=== PATIENT | male | born 1965 | race African-American/Black ===

== ENCOUNTER → 2018-01-24 | Outpatient (CLI) | payer BC ==
--- NOTE | 2018-01-26 10:30 | RADIOLOGY REPORT (SQ) ---
EXAM DESCRIPTION: MRI LT LOWER EXTREMITY COMBO COMPLETED DATE/TIME: 01/24/2018 9:24 am REASON FOR STUDY: LEFT THIGH MASS R22.42 LOCALIZED SWELLING, MASS AND LUMP, LEFT LOWER LIMB COMPARISON: None. TECHNIQUE: Multiplanar fat and fluid sensitive sequences precontrast including T1, T2 fat saturated or STIR. Post contrast T1 fat saturated sequences after IV gadolinium administration. CONTRAST TYPE AND DOSE: 15 mL Prohance. RENAL FUNCTION: GFR > 60. LIMITATIONS: None. FINDINGS: MASS SIGNAL CHARACTERISTICS: LOCATION: Semitendinosis. SIGNAL CHARACTERISTICS AND ENHANCEMENT PATTERN: Follows fat on all sequences. No enhancement. MEASUREMENTS: 5.4 x 4.6 x 9.2 cm AP by transverse by craniocaudal diameter. MARROW SIGNAL IN ADJACENT BONES: Normal. OTHER SIGNIFICANT BONE, JOINT OR SOFT TISSUE FINDINGS: Healed fracture proximal femoral diaphysis. IMPRESSION: Benign lipoma. TECHNICAL DOCUMENTATION: JOB ID: [id number] [employer]- All Rights Reserved Reading location - IP/workstation name: [email or web address]
== END ==
LOC: RAD 08:37
PROVIDERS: ATTEND Surgery
DX: D17.79 Benign lipomatous neoplasm of other sites (principal)
CPT/HCPCS: 82565; 73720; A9576

== ENCOUNTER 2018-06-15 05:26 | Observation (INO) | payer BC ==
[~2018-06-15 05:26] MED LIST: CEFAZOLIN 1 GM/D5W RTU 1 GM/50 ML RTUPB IV ONE; CEFAZOLIN 1 GM/D5W RTU 1 GM/50 ML RTUPB IV PRN
[2018-06-15 06:20] LABS: ABSOLUTE BASOPHILS # (AUTO) 0.1 10^3/uL (0.0-0.2); ABSOLUTE EOSINOPHILS # (AUTO) 0.2 10^3/uL (0.0-0.6); ABSOLUTE LYMPHOCYTES (AUTO) 2.2 10^3/uL (0.5-4.7); ABSOLUTE MONOCYTES (AUTO) 0.7 10^3/uL (0.1-1.4); ABSOLUTE NEUT (AUTO) 3.8 10^3/uL (1.7-8.2); BASOPHILS % (AUTO) 0.8 % (0-2); EOSINOPHILS % (AUTO) 2.3 % (0-6); HEMATOCRIT 44.6 % (37.9-51.0); HEMOGLOBIN 15.5 g/dL (13.5-17.0); LYMPHOCYTES % (AUTO) 31.7 % (13-45); MEAN CORPUSCULAR HEMOGLOBIN 30.4 pg (27.0-33.4); MEAN CORPUSCULAR HGB CONC 34.8 g/dL (32.0-36.0); MEAN CORPUSCULAR VOLUME 87 fl (80-97); MONOCYTES % (AUTO) 10.2 % (3-13); PLATELET COUNT 269 10^3/uL (150-450); RED BLOOD COUNT 5.11 10^6/uL (4.35-5.55); RED CELL DISTRIBUTION WIDTH 12.7 % (11.5-14.0); TOTAL CELLS COUNTED % (AUTO) 100 %; WHITE BLOOD COUNT 6.9 10^3/uL (4.0-10.5)
[2018-06-15] MEDS ORDERED: KETOROLAC TROMETHAMINE 60 MG/2 ML SDV ONE (06:42)
[2018-06-15] MEDS ORDERED: MIDAZOLAM 2 MG/2 ML INJ ONE (06:42)
[2018-06-15] MEDS ORDERED: FENTANYL CITRATE INJ/PF 100 MCG/2 ML AMPUL ONE (06:42)
[2018-06-15] MEDS ORDERED: ACETAMINOPHEN 1,000 MG/100 ML RTUPB IV ONE (06:43)
[2018-06-15] MEDS ORDERED: LIDOCAINE 1% INJ-PF (10 MG/ML) 30 ML SDV ONE (06:43)
[2018-06-15] MEDS ORDERED: DEXAMETHASONE SOD PHOSPHATE INJ 4 MG/1 ML VIAL ONE (06:43)
[2018-06-15] MEDS ORDERED: ONDANSETRON HCL INJ/PF 4 MG/2 ML SDV ONE (06:43)
[2018-06-15] MEDS ORDERED: PROPOFOL INJ 200 MG/20 ML VIAL IV ONE ×2 (06:43→08:09)
[2018-06-15] MEDS ORDERED: FENTANYL CITRATE INJ/PF 100 MCG/2 ML AMPUL IV PRN ×3 (08:45)
[2018-06-15] MEDS ORDERED: MORPHINE SULFATE 10 MG/ML INJ IV PRN (08:45)
[2018-06-15] MEDS ORDERED: DIPHENHYDRAMINE HCL 50 MG/ML VIAL IV PRN (08:45)
[2018-06-15] MEDS ORDERED: OXYCODONE-ACETAMINOPHEN 5-325 MG TABLET PO PRN ×2 (08:45)
[2018-06-15] MEDS ORDERED: MEPERIDINE HCL/PF INJ 25 MG/1 ML DISP.SYRIN IV PRN (08:45)
[2018-06-15] MEDS ORDERED: PROMETHAZINE HCL INJ 25 MG/1 ML VIAL IV PRN ×2 (08:45)
[2018-06-15] MEDS ORDERED: ONDANSETRON HCL INJ/PF 4 MG/2 ML SDV IV PRN (08:45)
--- NOTE | 2018-06-15 09:21 | Discharge Summary ---
Discharge Summary (SDC) - Discharge Final Diagnosis: Left posterior thigh mass Date of Surgery: 06/15/18 Discharge Date: 06/15/18 Condition: Stable Treatment or Instructions: WOUND CARE: You may shower in 24 hours. Leave outer dressing intact as to not get incision wet until 48 hours. After 48 hours, you may remove outer dressing from incision and around drain site. Warm water and soap may wash over wound, do not scrub. After shower, pat dry and re cover both the incision and drain site with gauze and tape. Empty drain every 24 hours. Measure output of drain by removing drain cap ( allowing air to fill the drain bulb) and measure fluid in drain by markings on bulb. Record output and bring to the clinic at follow up. PAIN MANAGEMENT: You may take Toradol 10 mg, one pill by mouth every six hours as needed for pain. FOLLOW UP: Return to clinic in 10 days for wound check and pathology. Call clinic sooner with questions/concerns or if incision becomes red, swollen or foul smelling drainage. Prescriptions: Ketorolac Tromethamine [Toradol 10 mg Tablet] 10 mg PO Q6HP PRN #20 tablet PRN Reason: Referrals: KODI LI MD [Primary Care Provider] - Discharge Diet: As Tolerated Discharge Activity: Walk Frequently Report the Following to Your Physician Immediately: Fever over 101 Degrees, Unusual Bleeding, Redness, Swelling, Warmth, Drainage-Green, Drainage-Foul Smelling
--- NOTE | 2018-06-15 09:23 | Operative Report ---
Operative Report DATE OF SURGERY: 06/15/18 PREOPERATIVE DIAGNOSIS: Large left lower extremity intramuscular lipoma POSTOPERATIVE DIAGNOSIS: Same OPERATION: 1. Complete excision of left lower extremity intramuscular lipoma. 2. Drainage of intramuscular compartment left lower extremity SURGEON: RASHI HARVEY 1ST PROGRAM ENGINEER: MASON VELAZQUEZ ANESTHESIA: GA TISSUE REMOVED OR ALTERED: Lipoma with satellite components COMPLICATIONS: None ESTIMATED BLOOD LOSS: Scant INTRAOPERATIVE FINDINGS: See below PROCEDURE: The patient was seen in the preop holding area with a left lower extremity was marked. The patient was then taken to the main operating room where general anesthesia was induced. This did require several attempts due to the anterior position of the hypopharynx, and redundant pharyngeal tissue. The patient was then rolled in a prone position with appropriate head neck and upper extremity support. Patient developed ventilation problems, without deterioration in his oxygenation. Anesthesia assessed the situation and determined that patient should be placed back in the supine position and this was accomplished. Reinspection of the endotracheal tube confirmed appropriate positioning of the tube. The patient had no evidence of bronchospasm, or pulmonary edema. The patient was placed back in the prone position, and initially did well, then again had problems with ventilation. Anesthesia reassess the situation and determined that there was malfunctioning of the ventilator. While the patient was being bagged by hand with adequate oxygenation, the ventilator was exchanged uneventfully, with improvement in ventilation of the patient. At no point during this exchange did we feel the patient was in jeopardy. Adequate anesthetic support was provided throughout the ventilator exchange. We elected to proceed with the procedure as planned. The left posterior thigh was exposed appropriately, prepped and draped in sterile fashion. Surgical plan surgical timeout were conducted. The palpable mass was appreciated in the mid to slightly left of midline posterior thigh. Findings were consistent with an enlarging soft tissue mass consistent with lipoma in the substance of the left semitendinosus muscle as identified by MRI scan approximately 4 months prior. He was Leslee 1% plain lidocaine. Approximately 8 cm incision was made vertically oriented over the maximum point of elevation. Subcutaneous tissue and fascia were divided with electrocautery. Using a combination of finger dissection, the muscular mass consistent with a lobulated but well-defined and circumscribed lipoma was from the surrounding musculature. Laterally posteriorly and medially, there were no significant attachments at all. Superiorly there were only a few fibrous attachments to the surrounding semitendinosus muscle. We are able to currently shuck out the mass such that it was suspended solely by a few fibromuscular elements inferiorly. These were cauterized and the mass was freed up in its entirety. There were 2 satellite lobular masses consistent with lipomas which were only dissected out and sent with the specimen. Specimens were placed on the back table with a ruler, and photographed for documentation purposes We checked the intramuscular compartment for bleeding and there was none. At no point did we transect any significant neuro vascular components. We felt the operation was complete. A #15 large Ke drain was placed to the inferior skin flap in midline, trimmed the appropriate length, secured to skin with 2-0 Prolene suture. The operative wound was closed in layers with 2-0 Vicryl 3-0 Vicryl and violette. Dressing, Denilson wrap applied. Patient was placed in the supine position, extubated uneventfully and taken to recovery room in stable condition. A portable upright chest x-ray will be obtained in the recovery room. The physician therapist's assistant, Ms. Coelho, provided assistance during this case by: Assisting with retracting tissue, instillation of local anesthesia and closure of skin incisions.
[2018-06-15] MEDS ORDERED: FUROSEMIDE INJ/PF 40 MG/4 ML SDV ONE (09:37)
--- NOTE | 2018-06-15 09:42 | RADIOLOGY REPORT (SQ) ---
EXAM DESCRIPTION: CHEST SINGLE VIEW COMPLETED DATE/TIME: 06/15/2018 9:27 am REASON FOR STUDY: difficult intubation COMPARISON: None. EXAM PARAMETERS: NUMBER OF VIEWS: One view. TECHNIQUE: Single frontal radiographic view of the chest acquired. RADIATION DOSE: NA LIMITATIONS: None. FINDINGS: LUNGS AND PLEURA: Bilateral diffuse airspace disease may be on the basis of edema or infi ltrates. No pneumothorax. MEDIASTINUM AND HILAR STRUCTURES: No masses. Contour normal. HEART AND VASCULAR STRUCTURES: Cardiomegaly. BONES: No acute findings. HARDWARE: None in the chest. OTHER: No other significant finding. IMPRESSION: 1. Bilateral diffuse airspace disease may be on the basis of edema or infiltrates. 2. No pneumothorax. 3. Cardiomegaly. TECHNICAL DOCUMENTATION: JOB ID: [id number] [employer]- All Rights Reserved Reading location - IP/workstation name: [email or web address]
[2018-06-15 10:23] LABS: ABSOLUTE EOSINOPHILS # (AUTO) 0.1 10^3/uL (0.0-0.6); ABSOLUTE LYMPHOCYTES (AUTO) 1.3 10^3/uL (0.5-4.7); ABSOLUTE MONOCYTES (AUTO) 0.2 10^3/uL (0.1-1.4); ABSOLUTE NEUT (AUTO) 9.1 10^3/uL (1.7-8.2); BASOPHILS % (AUTO) 0.3 % (0-2); EOSINOPHILS % (AUTO) 0.7 % (0-6); HEMATOCRIT 45.8 % (37.9-51.0); LYMPHOCYTES % (AUTO) 12.5 % (13-45); MEAN CORPUSCULAR HEMOGLOBIN 30.7 pg (27.0-33.4); MEAN CORPUSCULAR HGB CONC 34.9 g/dL (32.0-36.0); MEAN CORPUSCULAR VOLUME 88 fl (80-97); MONOCYTES % (AUTO) 1.8 % (3-13); PLATELET COUNT 243 10^3/uL (150-450); RED BLOOD COUNT 5.21 10^6/uL (4.35-5.55); SEGMENTED NEUTROPHILS % (AUTO) 84.7 % (42-78); TOTAL CELLS COUNTED % (AUTO) 100 %; WHITE BLOOD COUNT 10.7 10^3/uL (4.0-10.5)
[2018-06-15] MEDS ORDERED: SUCCINYLCHOLINE CHLORIDE INJ 200 MG/10 ML VIAL ONE (10:39)
[2018-06-15 10:45] LABS: ANION GAP 10 (5-19); BLOOD UREA NITROGEN 16 mg/dL (7-20); CALCIUM 9.2 mg/dL (8.4-10.2); CARBON DIOXIDE 26 mmol/L (22-30); CHLORIDE 107 mmol/L (98-107); GLUCOSE 127 mg/dL (75-110); POTASSIUM 4.7 mmol/L (3.6-5.0); SODIUM 142.7 mmol/L (137-145)
[2018-06-15] MEDS ORDERED: ACETAMINOPHEN 325 MG TABLET PO PRN (13:39)
--- NOTE | 2018-06-15 14:56 | RADIOLOGY REPORT (SQ) ---
EXAM DESCRIPTION: CHEST SINGLE VIEW COMPLETED DATE/TIME: 06/15/2018 2:39 pm REASON FOR STUDY: pulmonary edema COMPARISON: 06/15/2018, 0919 hours EXAM PARAMETERS: NUMBER OF VIEWS: One view. TECHNIQUE: Single frontal radiographic view of the chest acquired. RADIATION DOSE: NA LIMITATIONS: None. FINDINGS: LUNGS AND PLEURA: Pulmonary edema pattern seen on 06/15/2018 0919 hours has resolved. Lungs are free of focal infiltrates. No pleural effusion or pneumothorax. MEDIASTINUM AND HILAR STRUCTURES: No masses. Contour normal. HEART AND VASCULAR STRUCTURES: No cardiomegaly BONES: No acute findings. HARDWARE: Fracture stabilization hardware left mid humerus OTHER: No other significant finding. IMPRESSION: Resolved pulmonary edema pattern compared to earlier today TECHNICAL DOCUMENTATION: JOB ID: [id number] [employer]- All Rights Reserved Reading location - IP/workstation name: [email or web address]
[2018-06-15] MEDS ORDERED: AMLODIPINE BESYLATE 5 MG TABLET PO ONE (18:00)
--- NOTE | 2018-06-15 19:36 | EKG REPORT ---
SEVERITY:- NORMAL ECG - SINUS RHYTHM : Confirmed by: Mayra Christy MD 15-Jun-2018 19:35:34
--- NOTE | 2018-06-15 19:37 | PDOC H&P ---
History of Present Illness Admission Date/PCP: 06/15/18 12:13 KODI LI MD Patient complains of: admitted from recovery room due to hypoxia History of Present Illness: PIO CASTELLANOS is a 53 year old male with a past medical history of hypertension, allergic rhinitis and GERD who underwent an elective resection of a left leg mass earlier this morning. Called by surgeon who endorsed the case. Also obtained history from OR nurse who took care of the patient. Patient is a relatively healthy male who was apparently well with no acute symptoms. He went was intubated and was placed on a prone position during the surgery. He was given propofol, fentanyl and Versed during the procedure. He got a total of 1350 cc of IV fluids during the procedure. Apparently, patient was extubated after the procedure and was initially lethargic. He was initially hypoxic transiently in the 50s then 80s. He was placed on non-rebreather which improved the )2 sats to the 90s. A stat chest x-ray showed pulmonary edema. Patient was given a single dose of 10 mg of IV Lasix. Patient did became fully awake and was not in respiratory distress. His saturation improved and maintained above 95% on 2L of NC. Upon encounter, patient appears comfortable. He is saturating at 98% on 2L of NC. He denies SOB, dyspnea or chest pain. He denies any acute complaint and has been doing well prior to the procedure today. He denies previous diagnosis of heart disease or CHF. He does say he has a sister who had CHF and valve replacement at 40 yrs old but otherwise has no other remarkable cardiac history in the family. Past Medical History Cardiac Medical History: Reports: Hypertension - on meds Denies: Coronary Artery Disease, Myocardial Infarction Pulmonary Medical History: Denies: Asthma, Bronchitis, Chronic Obstructive Pulmonary Disease (COPD), Pneumonia Neurological Medical History: Denies: Seizures Musculoskeltal Medical History: Reports: Arthritis Hematology: Denies: Anemia Social History Smoking Status: Former Smoker Drugs: None Medication/Allergy Home Medications: Amlodipine Besylate 5 mg PO DAILY 09/19/15 Cholecalciferol (Vitamin D3) [Vitamin D3 5000 unit Capsule] 5,000 unit PO DAILY 09/19/15 Lactase [Lactaid] 3,000 unit PO DAILY 09/19/15 Multivitamin [Multivitamins] 1 each PO DAILY 09/19/15 Levocetirizine Dihydrochloride [Xyzal] 5 mg PO DAILY 06/15/18 Allergies/Adverse Reactions: No Known Allergies Allergy (Verified 06/15/18 05:53) Review of Systems All systems: reviewed and no additional remarkable complaints except as stated - as mentioned in HPI Physical Exam Vital Signs: Temp Pulse Resp BP Pulse Ox 98.8 F 116 H 18 145/81 H 95 06/15/18 16:17 06/15/18 16:17 06/15/18 16:17 06/15/18 16:17 06/15/18 16:17 Intake & Output 06/14/18 06/15/18 06/16/18 06:59 06:59 06:59 Intake Total 0 2200 Output Total 1010 Balance 0 1190 Weight 175 lb 0.05 oz General appearance: PRESENT: no acute distress, well-developed, well-nourished Head exam: PRESENT: atraumatic, normocephalic Eye exam: PRESENT: conjunctiva pink, EOMI, PERRLA. ABSENT: scleral icterus Ear exam: PRESENT: normal external ear exam Mouth exam: PRESENT: moist, tongue midline Neck exam: ABSENT: carotid bruit, JVD, lymphadenopathy, thyromegaly Respiratory exam: PRESENT: clear to auscultation aman. ABSENT: rales, rhonchi, wheezes Cardiovascular exam: PRESENT: RRR. ABSENT: diastolic murmur, rubs, systolic murmur Pulses: PRESENT: normal dorsalis pedis pul Vascular exam: PRESENT: normal capillary refill GI/Abdominal exam: PRESENT: normal bowel sounds, soft. ABSENT: distended, guarding, mass, organolmegaly, rebound, tenderness Rectal exam: PRESENT: deferred Neurological exam: PRESENT: alert, awake, oriented to person, oriented to place , oriented to time, oriented to situation, CN II-XII grossly intact. ABSENT: motor sensory deficit Results Laboratory Results: 06/15/18 10:06 06/15/18 10:06 06/15/18 06/15/18 06/15/18 06:05 10:06 10:06 WBC 6.9 10.7 H RBC 5.11 5.21 Hgb 15.5 16.0 Hct 44.6 45.8 MCV 87 88 MCH 30.4 30.7 MCHC 34.8 34.9 RDW 12.7 13.0 Plt Count 269 243 Seg Neutrophils % 55.0 84.7 H Lymphocytes % 31.7 12.5 L Monocytes % 10.2 1.8 L Eosinophils % 2.3 0.7 Basophils % 0.8 0.3 Absolute Neutrophils 3.8 9.1 H Absolute Lymphocytes 2.2 1.3 Absolute Monocytes 0.7 0.2 Absolute Eosinophils 0.2 0.1 Absolute Basophils 0.1 0.0 Sodium 142.7 Potassium 4.7 Chloride 107 Carbon Dioxide 26 Anion Gap 10 BUN 16 Creatinine 0.77 Est GFR ( Amer) > 60 Est GFR (Non-Af Amer) > 60 Glucose 127 H Calcium 9.2 06/15/18 10:06 NT-Pro-B Natriuret Pep < 11 Impressions: Chest X-Ray 06/15/18 14:00 IMPRESSION: Resolved pulmonary edema pattern compared to earlier today Assessment & Plan - Diagnosis (1) Acute respiratory failure with hypoxia Is this a current diagnosis for this admission?: Yes Plan: Patient developed acute pulmonary edema after extubation and was initially hypoxic in the 50s-80s. The acuity of the presentation suggests that this was likely secondary to negative pressure pulmonary edema post extubation. He did get IV fluids during the surgery but only received a total of 1350 cc which should not cause significant pulmonary congestion. Patient does not have a history of CHF or symptoms of CHF. He does have a sister who had a possible CHF and valve replacement at 40 yrs old. Will order an echo to check LV function. (2) Pulmonary edema Qualifiers: Chronicity: acute Qualified Code(s): J81.0 - Acute pulmonary edema Is this a current diagnosis for this admission?: Yes Plan: Please refer to #1. (3) Hypertension Is this a current diagnosis for this admission?: Yes Plan: Resume amlodipine. - Time Time Spent: 30 to 50 Minutes
[2018-06-16] MEDS ORDERED: CHOLECALCIFEROL (D3) 1,000 UNIT TABLET PO SCH (10:00)
[2018-06-16] MEDS ORDERED: MULTIVITAMIN TABLET PO SCH (10:00)
[2018-06-16] MEDS ORDERED: AMLODIPINE BESYLATE 5 MG TABLET PO SCH (10:00)
[2018-06-16] MEDS ORDERED: CETIRIZINE 5 MG TABLET PO SCH (10:00)
[2018-06-16] MEDS ORDERED: LACTASE 3000 UNIT PO SCH (10:00)
--- NOTE | 2018-06-16 11:18 | PDOC CONSULTATION ---
History of Present Illness Admission Date/PCP: 06/15/18 12:13 KODI LI MD History of Present Illness: This consult note is done to replace the H&P mistakenly made yesterday. PIO CASTELLANOS is a 53 year old male with a past medical history of hypertension, allergic rhinitis and GERD who underwent an elective resection of a left leg mass earlier this morning. Called by surgeon who endorsed the case. Also obtained history from OR nurse who took care of the patient. Patient is a relatively healthy male who was apparently well with no acute symptoms. He went was intubated and was placed on a prone position during the surgery. He was given propofol, fentanyl and Versed during the procedure. He got a total of 1350 cc of IV fluids during the procedure. Apparently, patient was extubated after the procedure and was initially lethargic. He was initially hypoxic transiently in the 50s then 80s. He was placed on non-rebreather which improved the )2 sats to the 90s. A stat chest x-ray showed pulmonary edema. Patient was given a single dose of 10 mg of IV Lasix. Patient did became fully awake and was not in respiratory distress. His saturation improved and maintained above 95% on 2L of NC. Upon encounter, patient appears comfortable. He is saturating at 98% on 2L of NC. He denies SOB, dyspnea or chest pain. He denies any acute complaint and has been doing well prior to the procedure today. He denies previous diagnosis of heart disease or CHF. He does say he has a sister who had CHF and valve replacement at 40 yrs old but otherwise has no other remarkable cardiac history in the family. Past Medical History Cardiac Medical History: Reports: Hypertension - on meds Denies: Coronary Artery Disease, Myocardial Infarction Pulmonary Medical History: Denies: Asthma, Bronchitis, Chronic Obstructive Pulmonary Disease (COPD), Pneumonia Neurological Medical History: Denies: Seizures Musculoskeltal Medical History: Reports: Arthritis Hematology: Denies: Anemia Social History Smoking Status: Former Smoker Drugs: None Family History Parental Family History Reviewed: Yes - no premature CAD Children Family History Reviewed: No Sibling(s) Family History Reviewed.: Yes - sister had valve replacement Medication/Allergy Home Medications: Amlodipine Besylate 5 mg PO DAILY 09/19/15 Cholecalciferol (Vitamin D3) [Vitamin D3 5000 unit Capsule] 5,000 unit PO DAILY 12/31/15 Lactase [Lactaid] 3,000 unit PO DAILY 09/19/15 Multivitamin [Multivitamins] 1 each PO DAILY 09/19/15 Levocetirizine Dihydrochloride [Xyzal] 5 mg PO DAILY 06/15/18 Allergies/Adverse Reactions: No Known Allergies Allergy (Verified 06/15/18 05:53) Review of Systems All systems: reviewed and no additional remarkable complaints except as stated - as mentioned in HPI Physical Exam Vital Signs: Temp Pulse Resp BP Pulse Ox 98.2 F 89 14 105/68 97 06/16/18 08:00 06/16/18 08:00 06/16/18 08:00 06/16/18 08:00 06/16/18 08:00 Intake & Output 06/15/18 06/16/18 06/17/18 06:59 06:59 06:59 Intake Total 0 2658 Output Total 1030 Balance 0 1628 Weight 175 lb 0.05 oz 175 lb 0.752 oz General appearance: PRESENT: no acute distress, well-developed, well-nourished Head exam: PRESENT: atraumatic, normocephalic Eye exam: PRESENT: conjunctiva pink, EOMI, PERRLA. ABSENT: scleral icterus Ear exam: PRESENT: normal external ear exam Mouth exam: PRESENT: moist, tongue midline Neck exam: ABSENT: carotid bruit, JVD, lymphadenopathy, thyromegaly Respiratory exam: PRESENT: clear to auscultation aman. ABSENT: rales, rhonchi, wheezes Cardiovascular exam: PRESENT: RRR. ABSENT: diastolic murmur, rubs, systolic murmur Pulses: PRESENT: normal dorsalis pedis pul GI/Abdominal exam: PRESENT: normal bowel sounds, soft. ABSENT: distended, guarding, mass, organolmegaly, rebound, tenderness Rectal exam: PRESENT: deferred Neurological exam: PRESENT: alert, awake, oriented to person, oriented to place , oriented to time, oriented to situation, CN II-XII grossly intact. ABSENT: motor sensory deficit Results Laboratory Results: 06/15/18 10:06 06/15/18 10:06 06/15/18 10:06 NT-Pro-B Natriuret Pep < 11 Impressions: Chest X-Ray 06/15/18 14:00 IMPRESSION: Resolved pulmonary edema pattern compared to earlier today Assessment & Plan - Diagnosis (1) Acute respiratory failure with hypoxia Is this a current diagnosis for this admission?: Yes Plan: Patient developed acute pulmonary edema after extubation and was initially hypoxic in the 50s-80s. The acuity of the presentation suggests that this was likely secondary to negative pressure pulmonary edema post extubation. He did get IV fluids during the surgery but only received a total of 1350 cc which should not cause significant pulmonary congestion. Patient does not have a history of CHF or symptoms of CHF. He does have a sister who had a possible CHF and valve replacement at 40 yrs old. Will order an echo to check LV function. (2) Pulmonary edema Qualifiers: Chronicity: acute Qualified Code(s): J81.0 - Acute pulmonary edema Is this a current diagnosis for this admission?: Yes Plan: Please refer to #1. (3) Hypertension Is this a current diagnosis for this admission?: Yes Plan: Resume amlodipine. - Time Time Spent: 30 to 50 Minutes
--- NOTE | 2018-06-16 16:12 | PDOC PROGRESS REPORT ---
Subjective Progress Note for:: 06/16/18 Subjective:: Mr. Vance is a 53 yr old male who was admitted from the recovery unit after he developed acute pulmonary edema after he was intubated. PAtient underwent elective resection of a left leg mass. No acute event overnight. Patient was easily taken off O2 support yesterday. He is comfortable and is saturating well on room air. Denies any acute complaint. Reason For Visit: ACUTE PULMONARY EDEMA Physical Exam Vital Signs: Temp Pulse Resp BP Pulse Ox 98.0 F 98 16 118/62 96 06/16/18 12:00 06/16/18 12:00 06/16/18 12:00 06/16/18 12:00 06/16/18 12:00 Intake & Output 06/15/18 06/16/18 06/17/18 06:59 06:59 06:59 Intake Total 0 2658 Output Total 1030 Balance 0 1628 Weight 175 lb 0.05 oz 175 lb 0.752 oz General appearance: PRESENT: no acute distress, well-developed, well-nourished Head exam: PRESENT: atraumatic, normocephalic Eye exam: PRESENT: conjunctiva pink, EOMI, PERRLA. ABSENT: scleral icterus Ear exam: PRESENT: normal external ear exam Mouth exam: PRESENT: moist, tongue midline Neck exam: ABSENT: carotid bruit, JVD, lymphadenopathy, thyromegaly Respiratory exam: PRESENT: clear to auscultation aman. ABSENT: rales, rhonchi, wheezes Cardiovascular exam: PRESENT: RRR. ABSENT: diastolic murmur, rubs, systolic murmur Vascular exam: PRESENT: normal capillary refill GI/Abdominal exam: PRESENT: normal bowel sounds, soft. ABSENT: distended, guarding, mass, organolmegaly, rebound, tenderness Rectal exam: PRESENT: deferred Neurological exam: PRESENT: alert, awake, oriented to person, oriented to place , oriented to time, oriented to situation, CN II-XII grossly intact. ABSENT: motor sensory deficit Results Laboratory Results: 06/15/18 10:06 06/15/18 10:06 06/15/18 10:06 NT-Pro-B Natriuret Pep < 11 Impressions: Chest X-Ray 06/15/18 14:00 IMPRESSION: Resolved pulmonary edema pattern compared to earlier today Assessment & Plan - Diagnosis (1) Acute respiratory failure with hypoxia Is this a current diagnosis for this admission?: Yes Plan: Patient developed acute pulmonary edema after extubation and was initially hypoxic in the 50s-80s. The acuity of the presentation suggests that this was likely secondary to negative pressure pulmonary edema post extubation. He did get IV fluids during the surgery but only received a total of 1350 cc which should not cause significant pulmonary congestion. Repeat chest x-ray yesterday done within 5 hours from initial x-ray showed complete and rapid resolution of pulmonary edema which is consistent with negative pressure pulmonary edema. Discussed in length with patient and who verbalized understanding. Echo was also done to check LV function. Discussed with Dr. Spear that echo was normal. (2) Pulmonary edema Qualifiers: Chronicity: acute Qualified Code(s): J81.0 - Acute pulmonary edema Is this a current diagnosis for this admission?: Yes Plan: Please refer to #1. (3) Hypertension Is this a current diagnosis for this admission?: Yes Plan: Continue amlodipine. - Time Time Spent with patient: 15-24 minutes
[2018-06-16 16:46] VITALS: BP 124/74
--- NOTE | 2018-06-16 17:06 | XCELERA REPORT ---
[address] [address] Transthoracic Echocardiogram Report Name: PIO CASTELLANOS Age: 53 yrs Gender: Male : 1965 Patient Status: Inpatient Patient Location: [address] [place], [place] [address] Study Date: 06/15/2018 07:19 PM Height: 60 in Weight: 175 lb BSA: 1.8 m2 Procedure: A two-dimensional transthoracic echocardiogram with color flow and Doppler was performed. Images were not obtained from all of the standard acoustic windows due to the limited scope of the study. Reason For Study: acute pulmonary edema, hypoxia History: acute pulmonary edema,. Ordering Physician: CARLOS BLACKMAN Performed By: Yamileth Parra Interpretation Summary The left ventricle is normal in size. There is normal left ventricular wall thickness. No True apical 2 chamber views obtained.Hence cannot comment on the apical anterior , the basal anterior, the basal inferior and apical inferior odonnell.The mid anterior , the mid inferior and the rest of the LV odonnell contract normally. .Normal LVEF at 65% in the limited views. Doppler measurements suggest impaired left ventricular relaxation, which is associated with grade I/IV or mild diastolic dysfunction There is no thrombus. The right ventricle is grossly normal size. The right atrium is normal. The left atrial size is normal. There is no evidence of mitral valve prolapse. There is no mitral valve stenosis. There is no mitral regurgitation noted. There is no aortic valve stenosis There is no LVOT obstruction. No aortic regurgitation is present. There is no tricuspid stenosis. There is a trace amount of tricuspid regurgitation RVSP is6 mm of Hg , with RA mean of 5.No pulmonary hypertension There is no pericardial effusion. MMode/2D Measurements & Calculations RVDd: 2.5 cm LVIDd: 4.2 cm FS: 33.3 % Ao root diam: 2.9 cm IVSd: 1.0 cm LVIDs: 2.8 cm EDV(Teich): 76.9 ml Ao root area: 6.5 cm2 LVPWd: 0.99 cm ESV(Teich): 28.9 ml LA dimension: 2.9 cm EF(Teich): 62.4 % Doppler Measurements & Calculations MV E max gwendolyn: MV P1/2t max gwendolyn: Ao V2 max: LV V1 max P.1 cm/sec 80.8 cm/sec 152.0 cm/sec 5.6 mmHg MV A max gwendolyn: MV P1/2t: 57.1 msec Ao max P.2 mmHg LV V1 max: 67.5 cm/sec MVA(P1/2t): 3.8 cm2 118.0 cm/sec MV E/A: 0.93 MV dec slope: 414.3 cm/sec2 MV dec time: 0.21 sec PA V2 max: TR max gwendolyn: MV P1/2t-pr_phl: 97.7 cm/sec 226.7 cm/sec 57.1 msec PA max PG: TR max P.6 mmHg 3.8 mmHg Left Ventricle The left ventricle is normal in size. There is normal left ventricular wall thickness. No True apical 2 chamber views obtained.Hence cannot comment on the apical anterior , the basal anterior, the basal inferior and apical inferior odonnell.The mid anterior , the mid inferior and the rest of the LV odonnell contract normally. .Normal LVEF at 65% in the limited views. Doppler measurements suggest impaired left ventricular relaxation, which is associated with grade I/IV or mild diastolic dysfunction. There is no thrombus. Right Ventricle The right ventricle is grossly normal size. Atria The right atrium is normal. The left atrial size is normal. Mitral Valve There is no evidence of mitral valve prolapse. There is no vegetation seen on the mitral valve. There is no mitral valve stenosis. There is no mitral regurgitation noted. Aortic Valve There is no aortic valve stenosis. There is no LVOT obstruction. No aortic regurgitation is present. Tricuspid Valve There is no tricuspid stenosis. There is a trace amount of tricuspid regurgitation. RVSP is6 mm of Hg , with RA mean of 5.No pulmonary hypertension. Pulmonic Valve There is no pulmonic valvular stenosis. There is no pulmonic valvular regurgitation. Great Vessels The aortic root is normal size. Effusions There is no pericardial effusion. : CARLOS BLACKMAN > Mayra Christy
== END 2018-06-16 16:55 | disposition home or self-care (01) ==
LOC: OROUT 05:26 → 4W 11:58 → OROUT 13:19 → 4S 17:11
PROVIDERS: ADMIT Surgery; ATTEND Surgery
PROC: 0KBT0ZZ Excision of Left Lower Leg Muscle, Open Approach (ICD-10-PCS; principal; 2018-06-15 07:30)
DX: D17.9 Benign lipomatous neoplasm, unspecified (principal); J95.821 Acute postprocedural respiratory failure; Y83.8 Other surgical procedures as the cause of abnormal reaction of the patient, or of later complication, without mention of misadventure at the time of the procedure; J81.0 Acute pulmonary edema; I10 Essential (primary) hypertension; M19.90 Unspecified osteoarthritis, unspecified site; M54.9 Dorsalgia, unspecified; Z01.818 Encounter for other preprocedural examination; Z87.891 Personal history of nicotine dependence; Z82.49 Family history of ischemic heart disease and other diseases of the circulatory system; Z79.899 Other long term (current) drug therapy
CPT/HCPCS: 36415; 85025; 80048; 83036; 83880; 88304 ×2; 93306; 71045; 93005; 93010; 27634; G0378 ×2; J2250; J0690; J1100; J1885; J3010; J1940; J3490 ×2; J0330; J2405; J2704; J0131; 300